=== PATIENT | female | born 1950 | race Caucasian/White ===

== ENCOUNTER 2020-05-06 11:30 | Inpatient (IN) | payer MEDICARE, OTHER ==
[~2020-05-06] VITALS: Ht 167.6 cm; Wt 83.8 kg
[~2020-05-06 11:30] MED LIST: ASPI-231 PO; LISI2.5T47 PO; METO25TA93 PO; PRAS10TA PO
[2020-05-06] MEDS ORDERED: SODIUM CHLORIDE 0.9% 500 ML IVB ONE (11:41)
[2020-05-06] MEDS ORDERED: ONDANSETRON HCL 4 MG/2 ML VIAL IV ONE ×2 (11:45→14:30)
[2020-05-06] MEDS ORDERED: MORPHINE SULFATE 4 MG/ML SYR/VIAL IV ONE (11:45)
[2020-05-06] MEDS ORDERED: HYDROmorphone HCL 2 MG/ML VL IV ONE ×2 (12:00→14:30)
[2020-05-06 12:11] LABS: Basophils # (auto) 0 10 ^3/uL (0-0.2); Basophils % (auto) 0.2 % (0.0-2.0); Eosinophils # (auto) 0 10 ^3/uL (0-0.8); Hematocrit 41.3 % (36.0-46.0); Hemoglobin 14.3 g/dL (12.2-16.2); Lymphocytes # (auto) 0.5 10 ^3/uL (0.4-5.4); Lymphocytes % (auto) 3.9 % (10.0-50.0); Mean Corpuscular Hemoglobin 32.2 pg (28.0-32.0); Mean Corpuscular Hgb Conc. 34.6 g/dL (32.0-36.0); Mean Corpuscular Volume 93.1 fL (80.0-100.0); Monocytes # (auto) 0.5 10 ^3/uL (0-1.3); Neutrophils # (auto) 11.1 10 ^3/uL (1.6-8.6); Neutrophils % (auto) 91.9 % (37.0-80.0); Platelet Count (auto) 186 10^3/uL (140-450); Red Blood Cells 4.44 10^6/uL (4.0-5.20); Red Cell Distribution Width 12.8 % (11.8-14.3); White Blood Cell 12.1 10^3/uL (4.4-10.8)
[2020-05-06 12:26] LABS: INR 1.06 (0.9-1.15); Partial Thromboplastin Time 25.6 sec (23.64-32.05)
[2020-05-06 12:29] LABS: Albumin 3.8 g/dL (3.4-5.0); Calcium 9.2 mg/dL (8.5-10.1); Potassium 3.6 mmol/L (3.5-5.1)
[2020-05-06 12:32] LABS: BUN/Creatinine Ratio 16.9; Bilirubin, Total 0.8 mg/dL (0.2-1.0); Total Protein 7.3 g/dL (6.4-8.2)
[2020-05-06] MEDS ORDERED: PIPERACILLIN-TAZOB 3.375GM 100 ML IV ONE (14:00)
[2020-05-06] MEDS ORDERED: GABA300C10 PO (14:38)
[2020-05-06] MEDS ORDERED: ATOR40TA52 PO (14:38)
[2020-05-06] MEDS ORDERED: LISI-275 PO (14:38)
[2020-05-06] MEDS: SODIUM CHLORIDE 0.9% 1,000 ML IV SCH ×2 (14:45→20:42)
[2020-05-06] MEDS ORDERED: HYDROmorphone HCL 2 MG/ML VL IV PRN ×3 (14:45→17:00)
[2020-05-06] MEDS ORDERED: FAMOTIDINE (10MG/ML) 2ML VL IV ONE (15:14)
[2020-05-06] MEDS ORDERED: HYDROmorphone HCL 2 MG/ML VL ONE (15:14)
[2020-05-06] MEDS ORDERED: ONDANSETRON HCL 4 MG/2 ML VIAL ONE (15:15)
[2020-05-06] MEDS ORDERED: GLYCOPYRROLATE 0.2 MG/ML 1ML VIAL ONE ×2 (15:15→16:08)
[2020-05-06] MEDS ORDERED: fentaNYL CITRATE 5 ML ONE (15:23)
[2020-05-06] MEDS ORDERED: MIDAZOLAM HCL 1MG/1ML-2 ML VIAL ONE (15:23)
[2020-05-06] MEDS ORDERED: PROPOFOL 10 MG/ML 20 ML IV ONE (15:25)
[2020-05-06] MEDS ORDERED: ROCURONIUM 10MG/ML 10ML VIAL IV ONE (15:25)
[2020-05-06] MEDS ORDERED: DexAMETHasone SOD PHOS 10MG/1ML VIAL INJ ONE (15:25)
[2020-05-06] MEDS ORDERED: KETOROLAC TROMETH 30 MG/ML 1ML VIAL ONE (15:25)
[2020-05-06] MEDS ORDERED: LIDOCAINE 2% (LOCAL ANESTH.) PF 5ml SDV ONE (15:25)
[2020-05-06] MEDS ORDERED: NEOSTIGMINE 1 MG/ML INJ (10mg/10ML VIAL) ONE (16:08)
[2020-05-06] MEDS ORDERED: metroNIDAZOLE 500MG/100ML 100 ML IV ONE (16:30)
[2020-05-06] MEDS ORDERED: D5W/SOD CHL 0.45%/KCL 20MEQ 1,000 ML IV ONE (16:30)
[2020-05-06] MEDS ORDERED: ceFAZolin IM 1GM/2.5ML STERILE WATER IM ONE (16:30)
[2020-05-06] MEDS ORDERED: NALOXONE HCL 0.4 MG/ML VIAL ONE (16:32)
[2020-05-06] MEDS ORDERED: ONDANSETRON HCL 4 MG/2 ML VIAL IV PRN (17:00)
--- NOTE | 2020-05-06 19:20 | NUR ---
Opening shift note Assumed care of patient. Patient A&Ox4, no c/o pain or nausea at this time. Discussed POC with patient who verbalized understanding. IVs flushed, patent and intact. Abdominal binder in place, dressings with minimal drainage and intact. NOMAN drain with sutures intact and 10 mL of serosanguineous drainage in container. Bed in lowest/locked position with 2 side rails up, call light within reach. Will continue to monitor Q1hr and PRN.
[2020-05-06] MEDS: PIPERACILLIN-TAZOB 3.375GM 100 ML IV SCH (20:41)
[2020-05-06] MEDS: GABAPENTIN 300 MG CAP PO SCH (21:24)
[2020-05-06] MEDS: ONDANSETRON HCL 4 MG/2 ML VIAL IV PRN (21:24)
[2020-05-06] MEDS: ATORVASTATIN 20 MG TAB PO SCH (21:24)
--- NOTE | 2020-05-06 21:30 | NUR ---
Patient c/o nausea Patient c/o nausea, administered 4 mg of Zofran per EMAR. Gave patient ice chips as requested, will continue to monitor.
--- NOTE | 2020-05-06 21:55 | NUR ---
Nausea reassessed Patient resting with eyes closed, respirations even and non-labored with no s/s of distress. Will continue to monitor.
[2020-05-06 22:00] VITALS: BP 131/68
[2020-05-07] MEDS: PIPERACILLIN-TAZOB 3.375GM 100 ML IV SCH ×5 (00:18→23:15)
--- NOTE | 2020-05-07 00:26 | NUR ---
NOMAN DRAIN Drained 25 ml of serosanguineous fluid from NOMAN drain. Patient had no c/o pain or nausea at this time. Will continue to monitor.
[2020-05-07] MEDS: ONDANSETRON HCL 4 MG/2 ML VIAL IV PRN ×2 (03:11→16:30)
[2020-05-07] MEDS: ACETAMINOPHEN 325 MG TAB PO PRN (03:11)
--- NOTE | 2020-05-07 03:15 | NUR ---
Patient c/o headache/nausea Patient stated that she had a headache and rated it at 2/10 for pain. She stated that she was starting to feel nauseated as well. Administered Tylenol 650 mg and Zofran, 4 mg per EMAR. Will continue to monitor.
--- NOTE | 2020-05-07 04:11 | NUR ---
Reassessed Pain/nausea Patient resting with eyes closed, respirations even and non-labored with no s/s of distress. Will continue to monitor.
[2020-05-07 05:00] VITALS: BP 119/68
--- NOTE | 2020-05-07 07:00 | NUR ---
Pain Patient c/o 7/10 abdominal pain. Administered 1 mg Dilaudid per EMAR.
--- NOTE | 2020-05-07 07:23 | NUR ---
Closing shift note Patient A&Ox4, using I.S. after receiving education on it. Endorsed care to day shift RN Marisa.
--- NOTE | 2020-05-07 08:46 | NUR ---
Educated patient on the important of turning, coughing and deep breathing to keep the lungs free from infection, I also educated patient on importance of ambulating even if it is only for a few steps, or even if she can stand at the bedside. Patient verbalized understanding but stated " ok, but later, right now I'm resting", I told her that was find as long as she planned on walking at some point by lunch time. she again verbalized understanding.
[2020-05-07 09:00] VITALS: BP 109/57
[2020-05-07] MEDS: GABAPENTIN 300 MG CAP PO SCH ×2 (09:51→22:00)
[2020-05-07] MEDS: METOPROLOL SUCCINATE XL 50 MG TAB PO SCH (09:51)
[2020-05-07] MEDS: LISINOPRIL 5 MG TAB PO SCH (09:51)
[2020-05-07] MEDS: SODIUM CHLORIDE 0.9% 1,000 ML IV SCH ×2 (10:45→20:45)
--- NOTE | 2020-05-07 10:45 | NUR ---
PATIENT REFUSED TO AMBULATE THUS FAR.
[2020-05-07 13:00] VITALS: BP 130/64
--- NOTE | 2020-05-07 13:37 | NUR ---
Patient continues to decline standing or walking. Patient is moving self around in bed, and shifting body weight, pumping feet with SCD's on. I expressed to the patient the importance of early ambulation after surgery but she continues to state that she wants to rest and is too dizzy.
--- NOTE | 2020-05-07 15:00 | NUR ---
PATIENT HAS NOT YET PASSED GAS, NO BM. PATIENT STATES SHE CAN'T WALK YET, SHE FEELS NAUSEAS.
[2020-05-07 17:00] VITALS: BP 135/73
--- NOTE | 2020-05-07 17:51 | NUR ---
Patient up to ambulate to bathroom for first time today, tolerated well. still c/o nausea lizzchl aware states it because of her infection.
--- NOTE | 2020-05-07 18:41 | NUR ---
Dexter at bedside, patient may take medications PO.
--- NOTE | 2020-05-07 19:30 | NUR ---
Opening shift note Assumed care of patient. Patient A&Ox4, with no SOB or s/s of distress. Discussed POC and NPO status until BM/gas is present. Patient verbalized understanding. IVs patent and intact. Assisted patient with ambulation to restroom. Patient tolerated well. Bed in lowest/locked position with 2 side rails up. Call light within reach. Will continue to monitor.
[2020-05-07 22:00] VITALS: BP 145/70
[2020-05-07] MEDS: ATORVASTATIN 20 MG TAB PO SCH (23:15)
--- NOTE | 2020-05-07 23:15 | NUR ---
IV insertion/removal Removed IV to the right AC due to leaking. Removed IV to the right FA due to infiltration. Inserted IV, 22 gauge to the left hand using sterile technique. Patient tolerated well.
[2020-05-08 05:00] VITALS: BP 127/70
[2020-05-08] MEDS: PIPERACILLIN-TAZOB 3.375GM 100 ML IV SCH ×2 (06:14→12:16)
[2020-05-08 06:30] LABS: Basophils # (auto) 0 10 ^3/uL (0-0.2); Basophils % (auto) 0.2 % (0.0-2.0); Eosinophils # (auto) 0 10 ^3/uL (0-0.8); Hematocrit 36.9 % (36.0-46.0); Hemoglobin 12.4 g/dL (12.2-16.2); Lymphocytes % (auto) 7.8 % (10.0-50.0); Mean Corpuscular Hemoglobin 31.7 pg (28.0-32.0); Mean Corpuscular Hgb Conc. 33.6 g/dL (32.0-36.0); Mean Corpuscular Volume 94.4 fL (80.0-100.0); Monocytes # (auto) 0.6 10 ^3/uL (0-1.3); Monocytes % (auto) 5.2 % (0.0-12.0); Neutrophils # (auto) 10.9 10 ^3/uL (1.6-8.6); Neutrophils % (auto) 86.8 % (37.0-80.0); Nucleated Red Blood Cells % 0.1 %; Platelet Count (auto) 187 10^3/uL (140-450); Red Blood Cells 3.91 10^6/uL (4.0-5.20); White Blood Cell 12.5 10^3/uL (4.4-10.8)
[2020-05-08] MEDS: SODIUM CHLORIDE 0.9% 1,000 ML IV SCH ×2 (06:45→16:45)
[2020-05-08 06:46] LABS: Calcium 8.7 mg/dL (8.5-10.1); Potassium 3.6 mmol/L (3.5-5.1)
--- NOTE | 2020-05-08 07:22 | NUR ---
Closing shift note Patient A&Ox4, no s/s of distress. Removed 25 ml from NOMAN drain. Patient stated she is now passing a lot of gas. Will Endorse care and pass onto day shift RN Marisa
[2020-05-08 09:00] VITALS: BP 131/67
[2020-05-08] MEDS: GABAPENTIN 300 MG CAP PO SCH ×3 (09:51→22:55)
[2020-05-08] MEDS: METOPROLOL SUCCINATE XL 50 MG TAB PO SCH (09:52)
[2020-05-08] MEDS: LISINOPRIL 5 MG TAB PO SCH (09:52)
--- NOTE | 2020-05-08 10:15 | NUR ---
Called ED regarding PICC line Contacted ED regarding PICC line RN who had called earlier stating that she was leaving the ED to place the line. Was told that the RN was no longer on duty and that there had been an emergency earlier with another patient. Will contact radiology regarding procedure tomorrow and that the patient still needs a 20 gauge placed.
--- NOTE | 2020-05-08 10:45 | NUR ---
Patient refused gabapentin states that she no longer takes it.
[2020-05-08 13:00] VITALS: BP 128/71
[2020-05-08] MEDS ORDERED: MEROPENEM 1GM IVPB 100 ML IV SCH (14:00)
[2020-05-08] MEDS ORDERED: LEVO750T2 PO (14:16)
[2020-05-08] MEDS ORDERED: METR500T PO (14:16)
--- NOTE | 2020-05-08 14:16 | NUR ---
Patient instructed to walk around the unit, patient apprehensive about walking, she doesn't complain of pain, she seems to want to move at her own pace ? Patient educated on new diet, full liquid. Patient reported x3 episodes of diarrhea, dr aware, patient has only ate clear liquids so that is understandable.
--- NOTE | 2020-05-08 14:35 | NUR ---
Received order for discharge, did not specify if patient will go home with her NOMAN drain.
--- NOTE | 2020-05-08 14:36 | NUR ---
Paged justin regarding order for NOMAN drain management.
--- NOTE | 2020-05-08 14:41 | NUR ---
Isela called back and stated that patient will go home with NOMAN drain
--- NOTE | 2020-05-08 15:00 | NUR ---
patient given NOMAN drain education, patient was able to explain back how to empty and manage drain.
[2020-05-08 15:33] VITALS: BP 131/67
--- NOTE | 2020-05-08 15:42 | NUR ---
Faxed paperwork to [facility] case management for home health Fax# : [phone].
--- NOTE | 2020-05-08 16:45 | NUR ---
patient o2 sat at 86% on RM air, with 02 back to 90%, patient was to DC home, Dr notified with new orders.
--- NOTE | 2020-05-08 17:00 | NUR ---
Patient started to have reddness, non raised, on arms, trunk and cheeks. MD notified sly
--- NOTE | 2020-05-08 17:20 | NUR ---
Dr heart stated he would take care of getting patient o2 no need to do anything except enter orders. will be delivered to patient bedside.
[2020-05-08 17:21] VITALS: BP 131/72
--- NOTE | 2020-05-08 17:24 | NUR ---
called CT for stat angio. they stated I need a 20gIV patient only has a 22. Called charge to assist. times 3 sticks attempts by nurses at station. All veins blew.
--- NOTE | 2020-05-08 17:49 | NUR ---
after x2 nurses and house sup was not able to obtain IV access for patient called Dr heart to notify, unable to perform stat CT.
--- NOTE | 2020-05-08 17:52 | NUR ---
JULIAN VILLALBA CANCEL CT DC PATIENT HOME ON
--- NOTE | 2020-05-08 17:53 | NUR ---
RE PATIENTS HOME 02 O2 to be delivered to bedside, then patient may DC home.
--- NOTE | 2020-05-08 18:06 | NUR ---
Patient upset about everything going on, says shes stressed out. Patient going to eat dinner and try to calm down.
--- NOTE | 2020-05-08 18:12 | NUR ---
per Dr. barry NUNO
--- NOTE | 2020-05-08 18:22 | NUR ---
o2 arrived at patients bedside.
--- NOTE | 2020-05-08 18:39 | NUR ---
per house sup, unable to obtain IV access for CTA. Nurse to contact PICC Nurse tomorrow.
[2020-05-08] MEDS ORDERED: diphenhdrAMINE HCL 25 MG CAP PO PRN ×2 (18:45)
[2020-05-08] MEDS ORDERED: levoFLOXacin 500MG 100 ML IV SCH (19:00)
--- NOTE | 2020-05-08 19:20 | NUR ---
Opening shift note Assumed care of patient who is A&Ox4, respirations even and non-labored with no s/s of distress. Discussed POC with patient who verbalized understanding. IV patent and intact running NS at 100. NOMAN drain holding 5ml serosanguineous fluid. Bed in lowest locked position with 2 side rails up, call light within reach. Will continue to monitor Q1hr and PRN.
[2020-05-08] MEDS: ACETAMINOPHEN 325 MG TAB PO PRN (20:35)
--- NOTE | 2020-05-08 20:35 | NUR ---
Patient c/o headache Patient stated that she had a headache rated 3/10 and requested some Tylenol. Administered Tylenol 650 mg per EMAR. Will continue to monitor.
--- NOTE | 2020-05-08 21:40 | NUR ---
Pain reassessed Patient stated that she no longer had a headache and felt much better. Will continue to monitor.
[2020-05-08 22:00] VITALS: BP 139/75
--- NOTE | 2020-05-08 22:23 | NUR ---
Contacted radiology regarding CT/PICC line Informed radiology that the patient is still waiting for the PICC line placement. Will contact when complete.
[2020-05-08] MEDS: ATORVASTATIN 20 MG TAB PO SCH (22:55)
[2020-05-08] MEDS: metroNIDAZOLE 500MG/100ML 100 ML IV SCH (22:55)
[2020-05-09] MEDS: SODIUM CHLORIDE 0.9% 1,000 ML IV SCH (02:45)
[2020-05-09] MEDS: metroNIDAZOLE 500MG/100ML 100 ML IV SCH (04:48)
--- NOTE | 2020-05-09 05:57 | NUR ---
Patient refused lab draw Informed by laborer pipelines. that the patient refused to have labs drawn. The patient stated that she would not have any more tests done and that she was done being "stuck" with any more needles. The laborer pipelines said that she would return around 0900 hrs to try and speak with the patient again.
--- NOTE | 2020-05-09 07:23 | NUR ---
Closing shift note Patient A&Ox4, no s/s of distress or SOB. Endorsed care to day shift RN Gina.
--- NOTE | 2020-05-09 07:30 | NUR ---
RECEIVED REPORT FROM NIGHT NURSE. PATIENT RESTING IN BED, NO DISTRESS NOTED.
[2020-05-09] MEDS: ACETAMINOPHEN 325 MG TAB PO PRN (08:48)
[2020-05-09 09:00] VITALS: BP 146/73
--- NOTE | 2020-05-09 09:46 | NUR ---
SPOKE WITH DR. BARAJAS, INFORMED HIM THAT PATIENT IS REFUSING THE HAVE THE CT ANGIO, ALSO REFUSING TO HAVE ANY MORE NEEDLE POKES. OK TO DISCHARGE. NOMAN DRAIN TRAINING GIVEN TO PATIENT.
[2020-05-09] MEDS ORDERED: ENOXAPARIN SOD 40 MG/0.4 ML SYRINGE SC SCH (10:00)
[2020-05-09] MEDS: METOPROLOL SUCCINATE XL 50 MG TAB PO SCH (10:00)
[2020-05-09] MEDS: LISINOPRIL 5 MG TAB PO SCH (10:00)
[2020-05-09] MEDS: GABAPENTIN 300 MG CAP PO SCH (10:00)
--- NOTE | 2020-05-09 10:57 | NUR ---
Discharge instructions given as ordered. Encourage to follow up with PMD as instructed. All questions and concerns addressed. Patient verbalized understanding. Medication reconciliation form completed and copy given to patient. IV removed with catheter intact, pressure dressing applied. Telemetry unit returned to ICU. Patient taken to vehicle via wheelchair with all personal belongings, accompanied by staff member. No distress noted at time of departure.
== END 2020-05-09 10:48 | disposition home health service (06) | DRG 340 ==
LOC: EDBD 11:30 → ER 11:30 → TELE-WESTW 17:58
PROVIDERS: ADMIT Internal Medicine; ATTEND Internal Medicine
PROC: 3E1M38Z Irrigation of Peritoneal Cavity using Irrigating Substance, Percutaneous Approach (ICD-10-PCS; 2020-05-06)
PROC: 0DTJ4ZZ Resection of Appendix, Percutaneous Endoscopic Approach (ICD-10-PCS; principal; 2020-05-06 15:40)
DX: K35.33 Acute appendicitis with perforation, localized peritonitis, and gangrene, with abscess (principal); I10 Essential (primary) hypertension; R09.02 Hypoxemia; I25.10 Atherosclerotic heart disease of native coronary artery without angina pectoris; B96.20 Unspecified Escherichia coli [E. coli] as the cause of diseases classified elsewhere; E66.9 Obesity, unspecified; J43.9 Emphysema, unspecified; R21 Rash and other nonspecific skin eruption; K44.9 Diaphragmatic hernia without obstruction or gangrene; K76.89 Other specified diseases of liver; F41.9 Anxiety disorder, unspecified; K57.30 Diverticulosis of large intestine without perforation or abscess without bleeding; Z83.3 Family history of diabetes mellitus; Z82.49 Family history of ischemic heart disease and other diseases of the circulatory system; Z88.8 Allergy status to other drugs, medicaments and biological substances; Z88.5 Allergy status to narcotic agent; Z68.29 Body mass index [BMI] 29.0-29.9, adult; Z79.899 Other long term (current) drug therapy
CPT/HCPCS: 36415; 71045; 74176; 80048; 80053; 83690; 85025; 85610; 85730; 86850; 86900; 86901; 87070; 87075; 87076; 87077; 87186; 87205; 88302; 93005; G0378; J0690; J1100; J1885; J1956; J2001; J2185; J2250; J2405; J2543; J2704; J3490